=== PATIENT | female | born 1975 | race Caucasian/White ===

== ENCOUNTER 2018-10-21 09:09 | Emergency (ER) | payer MEDICAID ==
[~2018-10-21] VITALS: Ht 165.1 cm; Wt 149.8 kg
[2018-10-21 09:12] VITALS: BP 167/90
[2018-10-21] MEDS ORDERED: AMOX-580 PO ×2 (09:31→09:52)
[2018-10-21] MEDS ORDERED: IBUP-1986 PO (09:31)
[2018-10-21] MEDS ORDERED: ibuprofen tablet 400 MG TABLET PO ONE (10:00)
== END 2018-10-21 10:06 | disposition home or self-care (01) ==
LOC: ER 09:10
DX: K04.7 Periapical abscess without sinus (principal); Z79.899 Other long term (current) drug therapy
CPT/HCPCS: 99283

== ENCOUNTER 2018-11-22 16:36 | Emergency (ER) | payer MEDICAID ==
[~2018-11-22] VITALS: Ht 165.1 cm; Wt 151.0 kg
[~2018-11-22 16:36] MED LIST: AMOX-580 PO; IBUP-1986 PO
[2018-11-22 16:48] VITALS: BP 122/65
[2018-11-22] MEDS ORDERED: IBUP-1986 PO (18:11)
[2018-11-22] MEDS ORDERED: PENI500T2 PO (18:11)
[2018-11-22] MEDS ORDERED: ACET-2119 PO (18:11)
== END 2018-11-22 18:19 | disposition home or self-care (01) ==
LOC: ER 16:36
DX: K04.7 Periapical abscess without sinus (principal); F17.200 Nicotine dependence, unspecified, uncomplicated
CPT/HCPCS: 99283